=== PATIENT | male | born 1950 | race Caucasian/White ===

== ENCOUNTER 2017-10-24 05:43 | Day surgery (SDC) | payer MEDICARE ==
[2017-10-22 11:34] VITALS: BP 100/60
[2017-10-22 11:41] LABS: EOSINOPHILS % (AUTO) 1.1 % (0.0-8.0); HEMATOCRIT 44.3 % (42-54); LYMPHOCYTES % (AUTO) 13.7 % (21.0-51.0); MEAN CORPUSCULAR HGB CONC 32.8 g/dL (32.0-36.0); MEAN CORPUSCULAR VOLUME 91.3 fL (79-99); MONOCYTES % (AUTO) 7.5 % (3.0-13.0); NEUTROPHILS % (AUTO) 76.7 % (40.0-77.0); PLATELET COUNT (AUTO) 288 K/uL (130-400); RED BLOOD CELL COUNT(AUTO) 4.85 MIL/uL (4.50-6.20); RED CELL DISTRIBUTION WIDTH 16.2 % (11.0-15.5); WHITE BLOOD COUNT (AUTO) 11.4 K/uL (4.8-10.8)
[2017-10-22 11:56] LABS: CREATININE 0.9 mg/dL (0.5-1.5); POTASSIUM 4.8 mmol/L (3.5-5.1)
[2017-10-22 11:57] LABS: INR 1.43 (0.85-1.15); PROTHROMBIN TIME 14.9 SEC (9.6-11.6)
[2017-10-22 12:11] LABS: PARTIAL THROMBOPLASTIN TIME 36.1 SEC (26.3-35.5)
[~2017-10-24] VITALS: Ht 175.3 cm; Wt 104.7 kg
[~2017-10-24 05:43] MED LIST: ASPI-1181 PO; ATOR-2 PO; CALC-866 PO; DIGO250T84 PO; FISH1CAP49 PO; LISI-617 PO; METO-409 PO; SERT50TA12 PO; WARF-57 PO
[2017-10-24 06:20] VITALS: BP 115/64
[2017-10-24 07:03] LABS: BASOPHILS % (AUTO) 0.8 % (0.0-5.0); EOSINOPHILS % (AUTO) 1.6 % (0.0-8.0); HEMATOCRIT 43.9 % (42-54); LYMPHOCYTES % (AUTO) 17.6 % (21.0-51.0); MEAN CORPUSCULAR HEMOGLOBIN 29.5 pg (27.0-33.0); MEAN CORPUSCULAR HGB CONC 32.4 g/dL (32.0-36.0); MEAN CORPUSCULAR VOLUME 90.8 fL (79-99); MONOCYTES % (AUTO) 7.2 % (3.0-13.0); NEUTROPHILS % (AUTO) 72.8 % (40.0-77.0); PLATELET COUNT (AUTO) 301 K/uL (130-400); RED BLOOD CELL COUNT(AUTO) 4.83 MIL/uL (4.50-6.20); WHITE BLOOD COUNT (AUTO) 11.3 K/uL (4.8-10.8)
[2017-10-24] MEDS ORDERED: BUPIVACAINE/PF 0.25% 30ML VIAL IJ ONE (07:15)
[2017-10-24] MEDS ORDERED: CEFAZOLIN 1GM / D5W 50ML 0 ML ONE (07:16)
[2017-10-24] MEDS ORDERED: LIDOCAINE HCL 1% MDV 50ML VIAL ONE (07:16)
[2017-10-24] MEDS ORDERED: MEPERIDINE-PF 50 MG/ML SYG ONE (07:17)
[2017-10-24] MEDS ORDERED: ISOVUE-300 100 ML VIAL IV ONE (07:17)
[2017-10-24] MEDS ORDERED: MIDAZOLAM HCL 1 MG/ML 2ML VIAL ONE (07:17)
[2017-10-24] MEDS ORDERED: SODIUM CHLORIDE 0.9% 1000ML 1,000 ML IV ONE (07:21)
[2017-10-24] MEDS ORDERED: AZIT250T9 PO (10:23)
[2017-11-12] MEDS ORDERED: CINN1CAP PO (09:04)
== END 2017-10-24 10:05 | disposition home or self-care (01) ==
LOC: DAH 05:43
PROVIDERS: ATTEND Internal Medicine Cardiovascular Disease
DX: I25.5 Ischemic cardiomyopathy (principal); I48.2 Chronic atrial fibrillation; I11.0 Hypertensive heart disease with heart failure; I50.9 Heart failure, unspecified; E78.00 Pure hypercholesterolemia, unspecified; Z79.82 Long term (current) use of aspirin; Z79.01 Long term (current) use of anticoagulants; Z79.899 Other long term (current) drug therapy; Z53.8 Procedure and treatment not carried out for other reasons
CPT/HCPCS: 36415 ×2; 71046; 80048; 85025 ×2; 85610; 85730; J7030; J0690; J2175; J2250; J3490; Q9967

== ENCOUNTER 2017-11-14 05:53 | Day surgery (SDC) | payer MEDICARE ==
[2017-11-12 08:39] VITALS: BP 122/73
[2017-11-12 08:51] LABS: BASOPHILS % (AUTO) 0.8 % (0.0-5.0); EOSINOPHILS % (AUTO) 2.2 % (0.0-8.0); HEMATOCRIT 42.5 % (42-54); LYMPHOCYTES % (AUTO) 13.8 % (21.0-51.0); MEAN CORPUSCULAR HEMOGLOBIN 29.7 pg (27.0-33.0); MEAN CORPUSCULAR HGB CONC 32.8 g/dL (32.0-36.0); MEAN CORPUSCULAR VOLUME 90.5 fL (79-99); MONOCYTES % (AUTO) 8.7 % (3.0-13.0); NEUTROPHILS % (AUTO) 74.5 % (40.0-77.0); PLATELET COUNT (AUTO) 295 K/uL (130-400); RED CELL DISTRIBUTION WIDTH 15.7 % (11.0-15.5); WHITE BLOOD COUNT (AUTO) 10.8 K/uL (4.8-10.8)
[2017-11-12 09:05] LABS: CREATININE 0.9 mg/dL (0.5-1.5); POTASSIUM 4.9 mmol/L (3.5-5.1)
[2017-11-12 09:06] LABS: INR 1.55 (0.85-1.15); PARTIAL THROMBOPLASTIN TIME 34.8 SEC (26.3-35.5); PROTHROMBIN TIME 16.1 SEC (9.6-11.6)
[2017-11-14] VITALS (9 sets, daily range): BP systolic 104–132; BP diastolic 49–76
[~2017-11-14] VITALS: Ht 175.3 cm; Wt 105.1 kg
[~2017-11-14 05:53] MED LIST changes: +CEFAZOLIN SODIUM 1 GM VIAL IVP SCH; +CINN1CAP PO; +SODIUM CHLORIDE 0.9% 1000ML 1,000 ML IV SCH
[2017-11-14] MEDS ORDERED: VANCOMYCIN 1GM+NS 250ML 250 ML IV SCH (06:30)
[2017-11-14] MEDS ORDERED: CEFAZOLIN SODIUM 1 GM VIAL IVP SCH (06:33)
[2017-11-14] MEDS ORDERED: LIDOCAINE HCL 1% MDV 50ML VIAL ONE (07:09)
[2017-11-14] MEDS ORDERED: BUPIVACAINE/PF 0.25% 30ML VIAL IJ ONE (07:09)
[2017-11-14] MEDS ORDERED: CEFAZOLIN 1GM / D5W 50ML 150 ML ONE (07:09)
[2017-11-14] MEDS ORDERED: MEPERIDINE-PF 50 MG/ML SYG ONE ×2 (07:37→08:13)
[2017-11-14] MEDS ORDERED: MIDAZOLAM HCL 1 MG/ML 2ML VIAL ONE ×3 (07:37→08:13)
[2017-11-14] MEDS ORDERED: LISINOPRIL 5 MG TABLET PO SCH (09:00)
[2017-11-14] MEDS ORDERED: ACETAMINOPHEN 325 MG TAB PO PRN (09:00)
[2017-11-14] MEDS ORDERED: ACETAMINOPHEN-CODEINE 300/30MG TAB PO PRN ×2 (09:00)
[2017-11-14] MEDS ORDERED: WARFARIN SODIUM 5 MG TAB PO SCH ×2 (09:00)
[2017-11-14] MEDS ORDERED: DIGOXIN 250 MCG TABLET PO SCH (16:00)
[2017-11-14] MEDS ORDERED: METOPROLOL TARTRATE 50 MG TAB PO SCH (21:00)
[2017-11-14] MEDS ORDERED: SERTRALINE HCL 50 MG TABLET PO SCH (21:00)
[2017-11-14] MEDS ORDERED: ASPIRIN 81 MG EC TAB PO SCH (21:00)
== END 2017-11-14 12:05 | disposition home or self-care (01) ==
LOC: DAH 05:53
PROVIDERS: ATTEND Internal Medicine Cardiovascular Disease
DX: I25.5 Ischemic cardiomyopathy (principal); E78.00 Pure hypercholesterolemia, unspecified; I50.22 Chronic systolic (congestive) heart failure; Z79.82 Long term (current) use of aspirin; Z79.01 Long term (current) use of anticoagulants; Z79.899 Other long term (current) drug therapy
CPT/HCPCS: 33263; 36415; 80048; 85025; 85610; 85730; 93005; C1721; J0690; J2175 ×2; J2250 ×3; J3490 ×2; J7030; 99152; 99153

== ENCOUNTER → 2018-08-07 | Outpatient (CLI) | payer MEDICARE ==
[~2018-08-07] MED LIST changes: -CEFAZOLIN SODIUM 1 GM VIAL IVP SCH; -SODIUM CHLORIDE 0.9% 1000ML 1,000 ML IV SCH
== END | disposition home or self-care (01) ==
LOC: SHCH 10:00
PROVIDERS: ATTEND Internal Medicine Cardiovascular Disease
DX: I25.5 Ischemic cardiomyopathy (principal); I48.0 Paroxysmal atrial fibrillation; Z95.0 Presence of cardiac pacemaker
CPT/HCPCS: 93306